=== PATIENT | male | born 1940 | race Caucasian/White ===

== ENCOUNTER 2023-03-08 09:54 | Inpatient (IN) | payer OTHER ==
[~2023-03-08] VITALS: Ht 188 cm; Wt 108.4 kg
[2023-03-08 10:12] VITALS: BP_SYST 118; PULSE 74; RESP 20; TEMP 98.3; O2SAT 98
[2023-03-08 10:38] LABS: BASOPHILS % (AUTO) 0.2 % (0.0-2.0); EOSINOPHILS # (AUTO) 0.1 K/uL (0.0-0.4); EOSINOPHILS % (AUTO) 0.7 % (0.0-4.0); HEMATOCRIT 34.8 % (36-54); HEMOGLOBIN 11.3 g/dL (14.0-18.0); LYMPHOCYTES # (AUTO) 0.9 K/uL (1.0-5.5); LYMPHOCYTES % (AUTO) 5.5 % (20.5-51.5); MEAN CORPUSCULAR HEMOGLOBIN 30 pg (27-31); MEAN CORPUSCULAR HGB CONC 32 % (32-36); MEAN CORPUSCULAR VOLUME 92 fL (79.0-98.0); MONOCYTES # (AUTO) 1.5 K/uL (0.0-1.0); MONOCYTES % (AUTO) 9.3 % (1.7-9.3); NEUTROPHILS # (AUTO) 13.6 K/uL (1.8-7.7); NEUTROPHILS % (AUTO) 84.3 % (40.0-70.0); PLATELET COUNT (AUTO) 413 K/uL (130-430); RED CELL DISTRIBUTION WIDTH 14.3 % (9.0-15.0); WHITE BLOOD COUNT (AUTO) 16.1 K/uL (4.8-10.8)
[2023-03-08 10:43] LABS: ERYTHROCYTE SEDIMENTATION RATE 120 MM/HR (0-15)
[2023-03-08 10:46] LABS: ANION GAP 12 (5-15); CARBON DIOXIDE 25 mmol/L (23-29); CHLORIDE 102 mmol/L (98-107); CREATININE 1.65 mg/dL (0.55-1.30); GLUCOSE 195 mg/dL (74-106); POTASSIUM 3.8 mmol/L (3.5-5.1); SODIUM SERUM 139 mmol/L (136-145); UREA NITROGEN, BLOOD 28 mg/dL (8-21)
[2023-03-08 10:48] LABS: BILIRUBIN,URINE NEGATIVE (NEGATIVE); BLOOD, URINE 1+ (NEGATIVE); CLARITY/URINE Slightly Cloudy (CLEAR); COLOR,URINE Dark yellow (YELLOW); GLUCOSE,URINE NEGATIVE (NEGATIVE); KETONES,URINE NEGATIVE (NEGATIVE); LEUKOCYTE ESTERASE ,URINE NEGATIVE (NEGATIVE); NITRITE, URINE NEGATIVE (NEGATIVE); PH,URINE 6.5 (5.0-8.0); PROTEIN URINE 2+ (NEGATIVE)
[2023-03-08 10:59] LABS: PROTHROMBIN TIME 10.6 SECS (9.5-12.5)
[2023-03-08 11:20] LABS: ACETONE, SERUM NEGATIVE (NEGATIVE)
[2023-03-08 11:23] LABS: ALANINE AMINOTRANSFERASE 27 U/L (12-78); ALBUMIN 2.3 g/dL (3.4-4.8); AMYLASE 50 U/L (0-100); ASPARTATE AMINOTRANSFERASE 25 U/L (10-37); LIPASE 134 U/L (73-393); TOTAL BILIRUBIN 0.4 mg/dL (0.0-1.0); TOTAL PROTEIN, SERUM 7.6 g/dL (6.4-8.3)
[2023-03-08 11:38] LABS: RBC,URINE 20-50 /HPF (0-3)
[2023-03-08 11:39] LABS: BACTERIA,URINE RARE /HPF (None Seen); URINE AMORPHOUS URATE 2+ /HPF (None Seen); WBC,URINE 0-3 /HPF (0-3)
[2023-03-08 11:40] LABS: FINE GRANULAR CASTS,URINE 0-10 /LPF (None Seen); HYALINE CASTS, URINE 0-10 /LPF (None Seen)
[2023-03-08] MEDS ORDERED: HYDROcodone/ACETAMIN 10-325 MG TAB PO ONE ×2 (12:45→21:30)
[2023-03-08] MEDS ORDERED: PSEUDOEPHEDRINE HCL 30 MG TABLET PO ONE (12:45)
[2023-03-08] MEDS ORDERED: IBUPROFEN 800 MG TABLET PO ONE (12:45)
[2023-03-08] MEDS ORDERED: cefTRIAXone 2 GM VIAL ONE (13:53)
[2023-03-08] MEDS ORDERED: DORZ10DR31 OP (14:30)
[2023-03-08] MEDS ORDERED: METF-379 PO (14:30)
[2023-03-08] MEDS ORDERED: BIMA2.5D5 OP (14:30)
[2023-03-08] MEDS ORDERED: LISI5TAB PO (14:30)
[2023-03-08] MEDS ORDERED: LEVO100C4 (14:30)
[2023-03-08] MEDS ORDERED: LOVA40TA75 PO (14:30)
[2023-03-08 17:16] VITALS: O2SAT 95
[2023-03-08 17:25] VITALS: BP_SYST 132; PULSE 61; RESP 14; TEMP 97.7
[2023-03-08 20:00] VITALS: BP_SYST 125; PULSE 65; RESP 16; TEMP 97.5
[2023-03-08] MEDS ORDERED: NALOXONE HCL 0.4 MG/ML AMP (NARCAN) IVP PRN (21:30)
[2023-03-09] MEDS ORDERED: NALOXONE HCL 0.4 MG/ML AMP (NARCAN) IVP PRN ×2
[2023-03-09] MEDS ORDERED: LORazepam 2 MG/ML VIAL IVP PRN
[2023-03-09] MEDS ORDERED: HYDROcodone/ACETAMIN 10-325 MG TAB PO PRN
[2023-03-09] MEDS ORDERED: HYDROcodone/ACETAMIN 5-325 MG TAB (NORCO/ VICODIN) PO PRN
[2023-03-09] MEDS ORDERED: ONDANSETRON HCL 4 MG/2 ML VIAL IVP PRN
[2023-03-09 00:17] VITALS: BP_SYST 137; PULSE 67; RESP 16; TEMP 98.9; O2SAT 93
[2023-03-09 06:22] LABS: BASOPHILS % (AUTO) 0.3 % (0.0-2.0); EOSINOPHILS # (AUTO) 0.2 K/uL (0.0-0.4); EOSINOPHILS % (AUTO) 1.2 % (0.0-4.0); HEMATOCRIT 32.7 % (36-54); HEMOGLOBIN 10.6 g/dL (14.0-18.0); LYMPHOCYTES # (AUTO) 0.9 K/uL (1.0-5.5); LYMPHOCYTES % (AUTO) 5.6 % (20.5-51.5); MEAN CORPUSCULAR HEMOGLOBIN 30 pg (27-31); MEAN CORPUSCULAR HGB CONC 32 % (32-36); MEAN CORPUSCULAR VOLUME 92 fL (79.0-98.0); MONOCYTES # (AUTO) 1.6 K/uL (0.0-1.0); MONOCYTES % (AUTO) 10.1 % (1.7-9.3); NEUTROPHILS # (AUTO) 12.9 K/uL (1.8-7.7); NEUTROPHILS % (AUTO) 82.8 % (40.0-70.0); PLATELET COUNT (AUTO) 360 K/uL (130-430); RED BLOOD CELL COUNT(AUTO) 3.57 MIL/uL (4.2-6.2); RED CELL DISTRIBUTION WIDTH 14.3 % (9.0-15.0); WHITE BLOOD COUNT (AUTO) 15.5 K/uL (4.8-10.8)
[2023-03-09] MEDS: LEVOTHYROXINE SODIUM 0.1 MG TABLET PO SCH (06:44)
[2023-03-09] MEDS: NACL 0.9% 1,000 ML IV SCH ×3 (06:45→14:30)
[2023-03-09 06:47] LABS: ANION GAP 11 (5-15); CALCIUM 8.3 mg/dL (8.4-11.0); CARBON DIOXIDE 24 mmol/L (23-29); CHLORIDE 103 mmol/L (98-107); CREATININE 1.51 mg/dL (0.55-1.30); GLUCOSE 151 mg/dL (74-106); PHOSPHORUS 3.9 mg/dL (2.7-4.5); POTASSIUM 3.9 mmol/L (3.5-5.1); SODIUM SERUM 138 mmol/L (136-145); UREA NITROGEN, BLOOD 30 mg/dL (8-21)
[2023-03-09 08:00] VITALS: BP_SYST 153; PULSE 69; RESP 16; TEMP 98.5; O2SAT 91
[2023-03-09] MEDS: DORZOLAMIDE HCL/TIMOLOL MAL. 10 ML EYE DROPS (COSOPT) OP SCH ×2 (10:29→21:31)
[2023-03-09 12:00] VITALS: BP_SYST 149; PULSE 75; RESP 16; TEMP 99.8; O2SAT 91
[2023-03-09] MEDS: ACETAMINOPHEN 325 MG TABLET PO PRN (13:28)
[2023-03-09 16:00] VITALS: BP_SYST 128; PULSE 64; RESP 15; TEMP 98.7; O2SAT 93
[2023-03-09] MEDS ORDERED: OMEPRAZOLE Non-Formulary 20 MG CAPSULE.DR PO SCH (16:00)
[2023-03-09] MEDS ORDERED: PANTOPRAZOLE SODIUM 40 MG TAB PO ONE (16:00)
[2023-03-09] MEDS: ATORVASTATIN 10 MG TABLET PO SCH (17:44)
[2023-03-09] MEDS: cefTRIAXone 1 GM in D5W 50 ML IV SCH (17:53)
[2023-03-09] MEDS ORDERED: BIMATOPROST 0.01%, 2.5 ML EYE DROPS OP SCH (18:00)
[2023-03-09 20:00] VITALS: BP_SYST 131; PULSE 65; RESP 20; TEMP 97.9; O2SAT 94
[2023-03-09] MEDS: PANTOPRAZOLE SODIUM 40 MG/VIAL (PROTONIX) IVP SCH (21:09)
[2023-03-09] MEDS: INSULIN REGULAR, HUMAN 100 UNITS/ML, 3 ML VIAL (humuLIN R) SUBCUT PRN (21:13)
[2023-03-10] MEDS: NACL 0.9% 1,000 ML IV SCH ×3 (00:30→21:02)
[2023-03-10 00:34] VITALS: BP_SYST 146; PULSE 67; RESP 18; TEMP 97.8; O2SAT 94
[2023-03-10 06:35] LABS: BASOPHILS # (AUTO) 0.1 K/uL (0.0-0.2); BASOPHILS % (AUTO) 0.4 % (0.0-2.0); EOSINOPHILS # (AUTO) 0.1 K/uL (0.0-0.4); EOSINOPHILS % (AUTO) 0.8 % (0.0-4.0); HEMATOCRIT 34.9 % (36-54); HEMOGLOBIN 11.1 g/dL (14.0-18.0); LYMPHOCYTES % (AUTO) 6.3 % (20.5-51.5); MEAN CORPUSCULAR HEMOGLOBIN 29 pg (27-31); MEAN CORPUSCULAR HGB CONC 32 % (32-36); MEAN CORPUSCULAR VOLUME 91 fL (79.0-98.0); MONOCYTES # (AUTO) 1.8 K/uL (0.0-1.0); NEUTROPHILS # (AUTO) 13.3 K/uL (1.8-7.7); NEUTROPHILS % (AUTO) 81.5 % (40.0-70.0); PLATELET COUNT (AUTO) 356 K/uL (130-430); RED BLOOD CELL COUNT(AUTO) 3.81 MIL/uL (4.2-6.2); RED CELL DISTRIBUTION WIDTH 14.2 % (9.0-15.0)
[2023-03-10] MEDS: LEVOTHYROXINE SODIUM 0.1 MG TABLET PO SCH (07:00)
[2023-03-10 07:11] LABS: PROTHROMBIN TIME 10.8 SECS (9.5-12.5)
[2023-03-10 07:19] LABS: ALANINE AMINOTRANSFERASE 33 U/L (12-78); ALBUMIN 1.6 g/dL (3.4-4.8); ANION GAP 11 (5-15); ASPARTATE AMINOTRANSFERASE 34 U/L (10-37); CALCIUM 7.9 mg/dL (8.4-11.0); CARBON DIOXIDE 23 mmol/L (23-29); CHLORIDE 103 mmol/L (98-107); CREATININE 1.28 mg/dL (0.55-1.30); GLUCOSE 138 mg/dL (74-106); POTASSIUM 3.6 mmol/L (3.5-5.1); SODIUM SERUM 137 mmol/L (136-145); TOTAL BILIRUBIN 0.4 mg/dL (0.0-1.0); TOTAL PROTEIN, SERUM 6.3 g/dL (6.4-8.3); UREA NITROGEN, BLOOD 23 mg/dL (8-21)
[2023-03-10] MEDS ORDERED: GLUCOSE (DEXTROSE) ORAL GEL -Adults PO PRN (07:30)
[2023-03-10] MEDS ORDERED: D5W 1,000 ML IV PRN (07:30)
[2023-03-10] MEDS ORDERED: DEXTROSE 50%-WATER 50 ML DISP.SYRIN IVP PRN (07:30)
[2023-03-10 08:00] VITALS: O2SAT 94
[2023-03-10 08:25] VITALS: BP_SYST 150; PULSE 70; RESP 17; TEMP 97.6; O2SAT 94
[2023-03-10 08:42] LABS: WHITE BLOOD COUNT (AUTO) 16.3 K/uL (4.8-10.8)
[2023-03-10] MEDS: PANTOPRAZOLE SODIUM 40 MG/VIAL (PROTONIX) IVP SCH ×2 (08:46→21:02)
[2023-03-10] MEDS: DORZOLAMIDE HCL/TIMOLOL MAL. 10 ML EYE DROPS (COSOPT) OP SCH ×2 (08:50→21:03)
[2023-03-10] MEDS ORDERED: PANTOPRAZOLE SODIUM 40 MG TAB PO SCH (09:00)
[2023-03-10 12:28] VITALS: BP_SYST 154; PULSE 111; RESP 18; TEMP 98.2; O2SAT 93
[2023-03-10] MEDS: cefTRIAXone 1 GM in D5W 50 ML IV SCH (14:29)
[2023-03-10] MEDS ORDERED: fentaNYL CITRATE/PF 100 MCG/2 ML AMP ONE (14:48)
[2023-03-10] MEDS ORDERED: MIDAZOLAM HCL 5 MG/5 ML VIAL ONE (14:48)
[2023-03-10] MEDS ORDERED: SIMETHICONE 40 MG/0.6 ML ML ONE (15:31)
[2023-03-10 16:30] VITALS: BP_SYST 108; PULSE 70; RESP 18; TEMP 97.8; O2SAT 93
[2023-03-10] MEDS: BIMATOPROST 0.01% OP SCH (17:12)
[2023-03-10] MEDS: EYE OP SCH (17:12)
[2023-03-10] MEDS: ATORVASTATIN 10 MG TABLET PO SCH (17:13)
[2023-03-10 20:00] VITALS: BP_SYST 145; PULSE 74; RESP 20; TEMP 98.8; O2SAT 96
[2023-03-10] MEDS: INSULIN REGULAR, HUMAN 100 UNITS/ML, 3 ML VIAL (humuLIN R) SUBCUT PRN (21:08)
[2023-03-11] VITALS (7 sets, daily range): BP systolic 145–154; PULSE 72–75; RESP 16–20; TEMP 98.8–99.9; O2SAT 95–99
[2023-03-11] MEDS: LEVOTHYROXINE SODIUM 0.1 MG TABLET PO SCH (06:28)
[2023-03-11] MEDS: NACL 0.9% 1,000 ML IV SCH ×2 (06:29→20:44)
[2023-03-11 07:28] LABS: BASOPHILS % (AUTO) 0.2 % (0.0-2.0); EOSINOPHILS # (AUTO) 0.1 K/uL (0.0-0.4); EOSINOPHILS % (AUTO) 0.6 % (0.0-4.0); HEMOGLOBIN 10.4 g/dL (14.0-18.0); LYMPHOCYTES # (AUTO) 1.2 K/uL (1.0-5.5); MEAN CORPUSCULAR HEMOGLOBIN 29 pg (27-31); MEAN CORPUSCULAR HGB CONC 33 % (32-36); MEAN CORPUSCULAR VOLUME 90 fL (79.0-98.0); MONOCYTES % (AUTO) 11.7 % (1.7-9.3); PLATELET COUNT (AUTO) 325 K/uL (130-430); RED BLOOD CELL COUNT(AUTO) 3.55 MIL/uL (4.2-6.2); RED CELL DISTRIBUTION WIDTH 14.4 % (9.0-15.0); WHITE BLOOD COUNT (AUTO) 17.3 K/uL (4.8-10.8)
[2023-03-11 07:37] LABS: ANION GAP 10 (5-15); CALCIUM 7.8 mg/dL (8.4-11.0); CARBON DIOXIDE 23 mmol/L (23-29); CHLORIDE 105 mmol/L (98-107); CREATININE 1.24 mg/dL (0.55-1.30); GLUCOSE 130 mg/dL (74-106); POTASSIUM 3.4 mmol/L (3.5-5.1); SODIUM SERUM 138 mmol/L (136-145); UREA NITROGEN, BLOOD 23 mg/dL (8-21)
[2023-03-11] MEDS: DORZOLAMIDE HCL/TIMOLOL MAL. 10 ML EYE DROPS (COSOPT) OP SCH ×2 (09:06→20:45)
[2023-03-11] MEDS: PANTOPRAZOLE SODIUM 40 MG/VIAL (PROTONIX) IVP SCH ×2 (09:11→20:44)
[2023-03-11] MEDS ORDERED: POTASSIUM CHLORIDE 20 MEQ TAB.PRT.SR PO ONE (09:15)
[2023-03-11] MEDS ORDERED: POTASSIUM CHLORIDE 20 MEQ TAB.PRT.SR ONE (11:28)
[2023-03-11 12:07] LABS: NEUTROPHILS % (AUTO) 80.5 % (40.0-70.0)
[2023-03-11] MEDS: cefTRIAXone 1 GM in D5W 50 ML IV SCH (15:20)
[2023-03-11] MEDS: BIMATOPROST 0.01% OP SCH (17:38)
[2023-03-11] MEDS: EYE OP SCH (17:38)
[2023-03-11] MEDS: ATORVASTATIN 10 MG TABLET PO SCH (17:40)
[2023-03-11] MEDS: INSULIN REGULAR, HUMAN 100 UNITS/ML, 3 ML VIAL (humuLIN R) SUBCUT PRN (20:54)
[2023-03-12 01:57] VITALS: BP_SYST 164; PULSE 74; RESP 18; TEMP 98.8; O2SAT 95
[2023-03-12 05:23] LABS: ERYTHROCYTE SEDIMENTATION RATE 38 MM/HR (0-15)
[2023-03-12 05:25] LABS: BASOPHILS # (AUTO) 0.1 K/uL (0.0-0.2); BASOPHILS % (AUTO) 0.4 % (0.0-2.0); EOSINOPHILS # (AUTO) 0.2 K/uL (0.0-0.4); EOSINOPHILS % (AUTO) 0.9 % (0.0-4.0); HEMOGLOBIN 10.9 g/dL (14.0-18.0); LYMPHOCYTES # (AUTO) 1.3 K/uL (1.0-5.5); LYMPHOCYTES % (AUTO) 7.3 % (20.5-51.5); MEAN CORPUSCULAR HEMOGLOBIN 30 pg (27-31); MEAN CORPUSCULAR HGB CONC 33 % (32-36); MEAN CORPUSCULAR VOLUME 90 fL (79.0-98.0); MONOCYTES % (AUTO) 11.4 % (1.7-9.3); NEUTROPHILS # (AUTO) 14.2 K/uL (1.8-7.7); PLATELET COUNT (AUTO) 349 K/uL (130-430); RED BLOOD CELL COUNT(AUTO) 3.66 MIL/uL (4.2-6.2); RED CELL DISTRIBUTION WIDTH 14.1 % (9.0-15.0); WHITE BLOOD COUNT (AUTO) 17.7 K/uL (4.8-10.8)
[2023-03-12 05:55] LABS: ALANINE AMINOTRANSFERASE 62 U/L (12-78); ALBUMIN 1.5 g/dL (3.4-4.8); ANION GAP 10 (5-15); ASPARTATE AMINOTRANSFERASE 76 U/L (10-37); CALCIUM 7.7 mg/dL (8.4-11.0); CARBON DIOXIDE 24 mmol/L (23-29); CHLORIDE 103 mmol/L (98-107); CREATININE 1.36 mg/dL (0.55-1.30); GLUCOSE 125 mg/dL (74-106); LIPASE 89 U/L (73-393); PHOSPHORUS 2.8 mg/dL (2.7-4.5); POTASSIUM 3.9 mmol/L (3.5-5.1); SODIUM SERUM 137 mmol/L (136-145); TOTAL BILIRUBIN 0.5 mg/dL (0.0-1.0); UREA NITROGEN, BLOOD 22 mg/dL (8-21)
[2023-03-12] MEDS ORDERED: PIPERACILLIN/TAZO 3.375/DEX-IS 50 ML IV SCH (06:00)
[2023-03-12] MEDS ORDERED: PIPERACILLIN/TAZO 2.25G/DEX-IS 50 ML IV SCH (06:00)
[2023-03-12] MEDS: LEVOTHYROXINE SODIUM 0.1 MG TABLET PO SCH (06:09)
[2023-03-12] MEDS ORDERED: DIATR MEGLU/DIATRIZ SOD 30 ML SOLUTION PO ONE (06:34)
[2023-03-12] MEDS ORDERED: iohexoL 240 mgI/mL, 50 ML INFUS..BTL IV ONE (08:54)
[2023-03-12] MEDS ORDERED: iohexoL 350 mgI/mL, 100 ML INFUS..BTL IV ONE (08:55)
[2023-03-12] MEDS: PANTOPRAZOLE SODIUM 40 MG/VIAL (PROTONIX) IVP SCH ×2 (10:27→21:05)
[2023-03-12] MEDS: DORZOLAMIDE HCL/TIMOLOL MAL. 10 ML EYE DROPS (COSOPT) OP SCH ×2 (10:27→21:05)
[2023-03-12 12:23] VITALS: BP_SYST 134; PULSE 64; RESP 18; TEMP 98.6; O2SAT 98
[2023-03-12] MEDS: PIPERACILLIN/TAZO 2.25G/DEX-IS 50 ML IV SCH ×2 (12:24→17:32)
[2023-03-12 16:00] VITALS: BP_SYST 139; PULSE 78; RESP 18; TEMP 98.7; O2SAT 96
[2023-03-12] MEDS: ATORVASTATIN 10 MG TABLET PO SCH (17:32)
[2023-03-12] MEDS: BIMATOPROST 0.01% OP SCH (17:32)
[2023-03-12] MEDS: EYE OP SCH (17:32)
[2023-03-12] MEDS: NACL 0.9% 1,000 ML IV SCH (17:33)
[2023-03-12 20:00] VITALS: BP_SYST 154; PULSE 70; RESP 16; TEMP 99; O2SAT 95; O2SAT 96
[2023-03-13] MEDS: PIPERACILLIN/TAZO 2.25G/DEX-IS 50 ML IV SCH ×4 (01:12→17:40)
[2023-03-13] MEDS: NACL 0.9% 1,000 ML IV SCH (01:13)
[2023-03-13 01:20] VITALS: BP_SYST 140; PULSE 68; RESP 17; TEMP 98.6; O2SAT 92
[2023-03-13] MEDS: LEVOTHYROXINE SODIUM 0.1 MG TABLET PO SCH (06:53)
[2023-03-13 08:30] VITALS: BP_SYST 133; PULSE 68; RESP 16; TEMP 98.3; O2SAT 98
[2023-03-13 08:44] LABS: BASOPHILS # (AUTO) 0.1 K/uL (0.0-0.2); BASOPHILS % (AUTO) 0.5 % (0.0-2.0); EOSINOPHILS # (AUTO) 0.2 K/uL (0.0-0.4); EOSINOPHILS % (AUTO) 1.1 % (0.0-4.0); LYMPHOCYTES % (AUTO) 5.4 % (20.5-51.5); MEAN CORPUSCULAR HEMOGLOBIN 30 pg (27-31); MEAN CORPUSCULAR HGB CONC 32 % (32-36); MONOCYTES # (AUTO) 1.7 K/uL (0.0-1.0); MONOCYTES % (AUTO) 9.7 % (1.7-9.3); NEUTROPHILS # (AUTO) 14.9 K/uL (1.8-7.7); NEUTROPHILS % (AUTO) 83.3 % (40.0-70.0); PLATELET COUNT (AUTO) 365 K/uL (130-430); RED CELL DISTRIBUTION WIDTH 14.5 % (9.0-15.0); WHITE BLOOD COUNT (AUTO) 17.8 K/uL (4.8-10.8)
[2023-03-13 08:45] VITALS: O2SAT 96
[2023-03-13 08:47] LABS: MEAN CORPUSCULAR VOLUME 92 fL (79.0-98.0)
[2023-03-13 08:53] LABS: ERYTHROCYTE SEDIMENTATION RATE 93 MM/HR (0-15)
[2023-03-13 09:21] LABS: ALANINE AMINOTRANSFERASE 97 U/L (12-78); ALBUMIN 1.5 g/dL (3.4-4.8); ANION GAP 8 (5-15); ASPARTATE AMINOTRANSFERASE 125 U/L (10-37); CARBON DIOXIDE 23 mmol/L (23-29); CHLORIDE 101 mmol/L (98-107); CREATININE 1.38 mg/dL (0.55-1.30); GLUCOSE 155 mg/dL (74-106); PHOSPHORUS 3.6 mg/dL (2.7-4.5); POTASSIUM 3.5 mmol/L (3.5-5.1); SODIUM SERUM 132 mmol/L (136-145); TOTAL BILIRUBIN 0.7 mg/dL (0.0-1.0); UREA NITROGEN, BLOOD 23 mg/dL (8-21)
[2023-03-13] MEDS: PANTOPRAZOLE SODIUM 40 MG/VIAL (PROTONIX) IVP SCH ×2 (10:11→21:21)
[2023-03-13] MEDS: DORZOLAMIDE HCL/TIMOLOL MAL. 10 ML EYE DROPS (COSOPT) OP SCH ×2 (10:12→21:18)
[2023-03-13] MEDS ORDERED: HEPARIN SODIUM,PORCINE 5,000 UNITS/ML VIAL SUBCUT ONE (10:30)
[2023-03-13 12:00] VITALS: BP_SYST 141; PULSE 71; RESP 18; TEMP 98.1; O2SAT 95
[2023-03-13] MEDS: INSULIN REGULAR, HUMAN 100 UNITS/ML, 3 ML VIAL (humuLIN R) SUBCUT PRN (12:46)
[2023-03-13 16:00] VITALS: BP_SYST 156; PULSE 97; RESP 16; TEMP 98; O2SAT 96
[2023-03-13] MEDS: ATORVASTATIN 10 MG TABLET PO SCH (17:40)
[2023-03-13] MEDS: EYE OP SCH (17:40)
[2023-03-13] MEDS: BIMATOPROST 0.01% OP SCH (17:40)
[2023-03-13 20:00] VITALS: BP_SYST 137; PULSE 72; RESP 20; TEMP 100.6; O2SAT 95
[2023-03-13] MEDS: ACETAMINOPHEN 325 MG TABLET PO PRN (21:20)
[2023-03-13] MEDS: HEPARIN SODIUM,PORCINE 5,000 UNITS/ML VIAL SUBCUT SCH (21:30)
[2023-03-14] MEDS: PIPERACILLIN/TAZO 2.25G/DEX-IS 50 ML IV SCH ×4 (00:20→18:21)
[2023-03-14 00:37] VITALS: BP_SYST 122; PULSE 65; RESP 17; TEMP 97.6; O2SAT 94
[2023-03-14] MEDS: NACL 0.9% 1,000 ML IV SCH (02:25)
[2023-03-14] MEDS: LEVOTHYROXINE SODIUM 0.1 MG TABLET PO SCH (06:20)
[2023-03-14 06:41] LABS: HEMATOCRIT 32.9 % (36-54); HEMOGLOBIN 10.6 g/dL (14.0-18.0); MEAN CORPUSCULAR HEMOGLOBIN 29 pg (27-31); MEAN CORPUSCULAR HGB CONC 32 % (32-36); MEAN CORPUSCULAR VOLUME 92 fL (79.0-98.0); PLATELET COUNT (AUTO) 393 K/uL (130-430); RED BLOOD CELL COUNT(AUTO) 3.59 MIL/uL (4.2-6.2); RED CELL DISTRIBUTION WIDTH 14.4 % (9.0-15.0); WHITE BLOOD COUNT (AUTO) 16.5 K/uL (4.8-10.8)
[2023-03-14 07:16] LABS: ALANINE AMINOTRANSFERASE 109 U/L (12-78); ALBUMIN 1.4 g/dL (3.4-4.8); ANION GAP 5 (5-15); ASPARTATE AMINOTRANSFERASE 117 U/L (10-37); CARBON DIOXIDE 26 mmol/L (23-29); CHLORIDE 102 mmol/L (98-107); CREATININE 1.33 mg/dL (0.55-1.30); GLUCOSE 126 mg/dL (74-106); PHOSPHORUS 3.5 mg/dL (2.7-4.5); POTASSIUM 3.5 mmol/L (3.5-5.1); SODIUM SERUM 133 mmol/L (136-145); TOTAL BILIRUBIN 0.7 mg/dL (0.0-1.0); TOTAL PROTEIN, SERUM 5.7 g/dL (6.4-8.3); UREA NITROGEN, BLOOD 23 mg/dL (8-21)
[2023-03-14 08:00] VITALS: O2SAT 96
[2023-03-14 08:13] VITALS: BP_SYST 157; PULSE 72; RESP 18; TEMP 98.4; O2SAT 96
[2023-03-14] MEDS: PANTOPRAZOLE SODIUM 40 MG/VIAL (PROTONIX) IVP SCH (08:40)
[2023-03-14] MEDS: HEPARIN SODIUM,PORCINE 5,000 UNITS/ML VIAL SUBCUT SCH (08:41)
[2023-03-14] MEDS: DORZOLAMIDE HCL/TIMOLOL MAL. 10 ML EYE DROPS (COSOPT) OP SCH (08:45)
[2023-03-14 09:30] LABS: ERYTHROCYTE SEDIMENTATION RATE 60 MM/HR (0-15)
[2023-03-14 09:47] LABS: BAND % (MANUAL) 8 % (0-6); BASOPHILS % (MANUAL) 0 % (0-2); EOSINOPHILS % (MANUAL) 0 % (0-7); LYMPHOCYTES % (MANUAL) 3 % (20-46); MONOCYTES % (MANUAL) 11 % (0-11); PLATELET ESTIMATE ADEQUATE (ADEQUATE)
[2023-03-14] MEDS ORDERED: AMOX-423 PO (10:19)
[2023-03-14] MEDS ORDERED: PRO40 PO (10:21)
[2023-03-14 11:50] VITALS: BP_SYST 109; PULSE 73; RESP 21; TEMP 99.7; O2SAT 94
[2023-03-14 16:14] VITALS: BP_SYST 109; PULSE 73; RESP 21; TEMP 99.2; O2SAT 99
[2023-03-14 16:31] VITALS: BP_SYST 125; PULSE 68; RESP 21; TEMP 99.5; O2SAT 96
[2023-03-14] MEDS: INSULIN REGULAR, HUMAN 100 UNITS/ML, 3 ML VIAL (humuLIN R) SUBCUT PRN (16:41)
[2023-03-14] MEDS: ATORVASTATIN 10 MG TABLET PO SCH (18:20)
[2023-03-14] MEDS: BIMATOPROST 0.01% OP SCH (18:21)
[2023-03-14] MEDS: EYE OP SCH (18:21)
== END 2023-03-14 21:15 | DRG 383 ==
LOC: SED 09:54 → SMU 14:40
PROVIDERS: ADMIT Preventive Medicine Preventive Medicine/Occupational Environmental Medicine; ATTEND Preventive Medicine Preventive Medicine/Occupational Environmental Medicine
PROC: 0DB98ZX Excision of Duodenum, Via Natural or Artificial Opening Endoscopic, Diagnostic (ICD-10-PCS; principal; 2023-03-10 15:30)
DX: K25.9 Gastric ulcer, unspecified as acute or chronic, without hemorrhage or perforation (principal); E43 Unspecified severe protein-calorie malnutrition; N17.9 Acute kidney failure, unspecified; N39.0 Urinary tract infection, site not specified; E87.1 Hypo-osmolality and hyponatremia; R65.10 Systemic inflammatory response syndrome (SIRS) of non-infectious origin without acute organ dysfunction; E78.5 Hyperlipidemia, unspecified; Z68.30 Body mass index [BMI] 30.0-30.9, adult; E83.41 Hypermagnesemia; E83.51 Hypocalcemia; E83.52 Hypercalcemia; E87.6 Hypokalemia; E88.09 Other disorders of plasma-protein metabolism, not elsewhere classified; E03.9 Hypothyroidism, unspecified; E11.65 Type 2 diabetes mellitus with hyperglycemia; K20.90 Esophagitis, unspecified without bleeding; G44.219 Episodic tension-type headache, not intractable; N28.1 Cyst of kidney, acquired; I12.9 Hypertensive chronic kidney disease with stage 1 through stage 4 chronic kidney disease, or unspecified chronic kidney disease; E11.22 Type 2 diabetes mellitus with diabetic chronic kidney disease; M51.36 Other intervertebral disc degeneration, lumbar region; K29.70 Gastritis, unspecified, without bleeding; R74.01 Elevation of levels of liver transaminase levels; N18.31 Chronic kidney disease, stage 3a; K44.9 Diaphragmatic hernia without obstruction or gangrene; K42.9 Umbilical hernia without obstruction or gangrene; K76.0 Fatty (change of) liver, not elsewhere classified; D64.9 Anemia, unspecified; Z87.11 Personal history of peptic ulcer disease; Z90.49 Acquired absence of other specified parts of digestive tract; K21.00 Gastro-esophageal reflux disease with esophagitis, without bleeding
CPT/HCPCS: 36415; 43239; 70450-TC; 71045; 71250-TC; 76376; 76700-TC; 80048; 80053; 81000; 82009; 82150; 82962; 83605; 83690; 83735; 84100; 84484; 85007; 85025; 85027; 85610-TC; 85651-TC; 85730-TC; 87040; 87081; 87086; 88305; 88312; 88313; 93005; 96365; 97110-GP; 97116-GP; 97530-GP; 99285; C9113; J0696; J1644; J1815; J2250; J2405; J2543; J3010; J7060; Q9964; Q9966; Q9967